=== PATIENT | male | born 1985 | race Caucasian/White ===

== ENCOUNTER 2021-05-25 17:54 | Emergency (ER) | payer SELFPAY ==
--- NOTE | ~2021-05-25 | XR_ITS ---
EXAMINATION: XR chest 1V portable EXAM DATE: 05/25/2021 18:50 INDICATION: Center ant chest pain. TECHNIQUE: Portable AP frontal chest x-ray was obtained. Comparison is made to prior examination from 05/13/2015. FINDINGS: The lungs are clear. There are no pleural effusions. The cardiomediastinal silhouette is within normal limits. There is no pneumothorax suspected. The bones and soft tissues are unremarkab le. IMPRESSION: No acute cardiopulmonary findings. Reviewed, dictated and finalized at location G.
[2021-05-25 18:00] VITALS: BP 148/96; PULSE 102; RESP 20; TEMP 36.8; O2SAT 100
--- NOTE | 2021-05-25 18:20 | ECG_ITS ---
Measurements Intervals [place] Rate: 87 P: 59 MT: 136 QRS: 6 QRSD: 83 T: 51 QT: 337 QTc: 405 Interpretive Statements SINUS RHYTHM POSSIBLE RIGHT VENTRICULAR CONDUCTION DELAY [RSR (QR) IN V1/V2] BORDERLINE ECG NO PREVIOUS ECG AVAILABLE FOR COMPARISON Electronically Signed On 05-26-2021 13:47:29 CDT by Alonzo Nam M.D.
[2021-05-25 18:32] LABS: Basophils Absolute Auto 0.03 K/mm3 (0.00-0.10); Basophils Percent Auto 0.4 % (0.0-1.0); Eosinophils Absolute Auto 0.21 K/mm3 (0.02-0.50); Eosinophils Percent Auto 2.9 % (1.0-6.0); Hematocrit 44.7 % (40.0-54.0); Hemoglobin 14.8 g/dL (14.0-18.0); Immature Granulocyte Absolute 0.03 K/mm3 (0.00-0.00); Immature Granulocyte Percent A 0.4 % (0.0-0.0); Lymphocytes Percent Auto 27.4 % (18.0-42.0); Mean Corpuscular HGB Conc 33.1 g/dL (32.0-36.0); Mean Corpuscular Hemoglobin 29.3 pg (27.0-31.0); Mean Corpuscular Volume 88.5 fL (78.0-102.0); Mean Platelet Volume 10.5 fl (8.7-11.0); Monocytes Absolute Auto 0.64 K/mm3 (0.10-0.90); Monocytes Percent Auto 8.8 % (2.0-11.0); Neutrophils Absolute Auto 4.4 K/mm3 (1.7-7.2); Neutrophils Percent Auto 60.1 % (50.0-70.0); Platelet Count Result 182 K/mm3 (150-420); Red Blood Count 5.05 M/mm3 (4.70-6.10); Red Cell Distribution Width 12.6 % (11.6-14.4); White Blood Count 7.3 K/mm3 (4.8-10.8)
--- NOTE | 2021-05-25 18:41 | ED.CHESTPAIN ---
HPI - Chest Pain General Chief Complaint: Unspecified Stated Complaint: chest pain Source: patient Mode of arrival: ambulatory Limitations: no limitations History of Present Illness HPI narrative: Pt says he has been having intermittent sharp parasternal Cp off and on for 2 months. Pt says it seems to be brought on by picking up arms. Says it comes on and can last several minutes and then he gets himself panicking and takes awhile to clam down. MD complaint: chest pain Onset (ago): month(s) (2 months) Timing of current episode: episodic Prior episodes: Yes Onset: other (with movemnent of upper extremities ) Pain location: parasternal Pain radiation: none Severity: moderate Quality: sharp Relieving factors: nothing Exacerbating factors: palpation and movement Related Data Allergies Allergy/AdvReac Type Severity Reaction Status Date / Time No Known Allergies Allergy Mild Verified 05/25/21 18:15 Review of Systems Review of Systems: All systems reviewed & are unremarkable except as noted in HPI and below Exam Const: General: no acute distress Nutritional Appearance: well nourished Orientation/consciousness: patient oriented x3 Neck: Neck: normal visual inspection Chest: Chest palpation & inspection: normal inspection of the chest and tenderness (tender to palpation left parasternal reproduces pain) Resp: Effort & Inspection: normal respiratory effort Auscultation: clear to auscultation bilaterally Cardio: Rate: regular rate Rhythm: regular rhythm GI: GI Palp: Yes Soft to palpation Skin: General skin exam: normal color Neuro: General: patient oriented x3, moves all extremities and no focal motor deficits Extrem: General: normal to inspection Psych: Appearance: grossly normal Mental Status: mental status grossly normal Thought content: Yes Normal thought content present Course Vital Signs Vital signs: Vital Signs Temperature 98.2 F 05/25/21 18:00 Pulse Rate 102 H 05/25/21 18:00 Respiratory Rate 20 05/25/21 18:00 Blood Pressure 148/96 H 05/25/21 18:00 Pulse Oximetry 100 05/25/21 18:00 Temperature 98.2 F 05/25/21 18:00 Pulse Rate 102 H 05/25/21 18:00 Respiratory Rate 20 05/25/21 18:00 Blood Pressure 148/96 H 05/25/21 18:00 Pulse Oximetry 100 05/25/21 18:00 MDM - Chest Pain Lab Data Result diagrams: 05/25/21 18:30 05/25/21 18:29 Labs: Lab Results 05/25/21 05/25/21 Range/Units 18:29 18:30 WBC 7.3 (4.8-10.8) K/mm3 RBC 5.05 (4.70-6.10) M/mm3 Hgb 14.8 (14.0-18.0) g/dL Hct 44.7 (40.0-54.0) % MCV 88.5 (78.0-102.0) fL MCH 29.3 (27.0-31.0) pg MCHC 33.1 (32.0-36.0) g/dL RDW 12.6 (11.6-14.4) % Plt Count 182 (150-420) K/mm3 MPV 10.5 (8.7-11.0) fl Immature Gran % (Auto) 0.4 H (0.0-0.0) % Neut % (Auto) 60.1 (50.0-70.0) % Lymph % (Auto) 27.4 (18.0-42.0) % [place] % (Auto) 8.8 (2.0-11.0) % Eos % (Auto) 2.9 (1.0-6.0) % Baso % (Auto) 0.4 (0.0-1.0) % Lymph # (Auto) 2.00 (1.10-4.50) K/mm3 [place] # (Auto) 0.64 (0.10-0.90) K/mm3 Eos # (Auto) 0.21 (0.02-0.50) K/mm3 Baso # (Auto) 0.03 (0.00-0.10) K/mm3 Abs Immat Gran (auto) 0.03 H (0.00-0.00) K/mm3 Absolute Neuts (auto) 4.4 (1.7-7.2) K/mm3 Absolute Nucleated RBC 0.00 (0.00-0.00) K/mm3 Nucleated RBC % 0.0 (0-0.0) % Sodium 137 (136-145) mmol/L Potassium 3.7 (3.5-5.1) mmol/L Chloride 101 (98-108) mmol/L Carbon Dioxide 28 (21-32) mmol/L Anion Gap 8 (8-16) mmol/L BUN 11 (7-18) mg/dL Creatinine 1.08 (0.70-1.30) mg/dL Estim Creat Clear Calc 94 ml/min Estimated GFR > 60 (59 - ) Glucose 86 (70-99) mg/dL Calculated Osmolality 282 L (285-295) mOsm/kg Calcium 8.3 L (8.5-10.1) mg/dL Total Bilirubin 0.4 (0.00-1.00) mg/dL AST 18 (15-37) U/L ALT 27 (16-63) U/L Alkaline Phosphatase 56 (46-116) U/L Troponin I 8.2 (0.00-60.4) ng/L Total Protein 7.1 (6.4
[2021-05-25 18:50] LABS: Alanine Aminotransferase 27 U/L (16-63); Albumin Level 4.2 g/dL (3.4-5.0); Alkaline Phosphatase 56 U/L (46-116); Anion Gap 8 mmol/L (8-16); Aspartate Amino Transferase 18 U/L (15-37); Bilirubin,Total 0.4 mg/dL (0.00-1.00); Blood Urea Nitrogen 11 mg/dL (7-18); Calcium 8.3 mg/dL (8.5-10.1); Carbon Dioxide 28 mmol/L (21-32); Chloride 101 mmol/L (98-108); Estimated CRCL calculation 94 ml/min; Estimated Glomerular Filt Rate > 60; Glucose 86 mg/dL (70-99); Osmolality Calculated 282 mOsm/kg (285-295); Potassium 3.7 mmol/L (3.5-5.1); Sodium 137 mmol/L (136-145); Total Protein 7.1 g/dL (6.4-8.2)
[2021-05-25 19:04] LABS: Troponin I 8.2 ng/L (0.00-60.4)
[2021-05-25 19:25] VITALS: BP 130/87; PULSE 64; RESP 18; TEMP 36.6; O2SAT 97
== END 2021-05-25 19:30 | disposition home or self-care (01) ==
PROVIDERS: Emergency Provider Emergency Medicine
DX: R07.89 Other chest pain (principal)
CPT/HCPCS: 36415; 71045; 80053; 84484; 85025; 93005; 99284

== ENCOUNTER 2023-10-20 14:42 | Outpatient (CLI) | payer OTHER, SELFPAY ==
[2023-10-24 15:18] LABS: H pylori, Urea Breath NOT DETECTED (NOT DETECTED)
== END 2023-10-20 14:43 | disposition home or self-care (01) ==
LOC: CHSLAB 14:44
PROVIDERS: PCP Family Medicine; Visit Provider Family Medicine
DX: K21.9 Gastro-esophageal reflux disease without esophagitis (principal)
CPT/HCPCS: 83013

== ENCOUNTER 2023-10-21 08:41 | Outpatient (CLI) | payer OTHER, SELFPAY ==
[2023-10-21 13:08] LABS: Basophils Absolute Auto 0.03 K/mm3 (0.00-0.10); Basophils Percent Auto 0.5 % (0.0-1.0); Eosinophils Absolute Auto 0.29 K/mm3 (0.02-0.50); Eosinophils Percent Auto 5.3 % (1.0-6.0); Hematocrit 47.5 % (40.0-54.0); Hemoglobin 15.7 g/dL (14.0-18.0); Immature Granulocyte Absolute 0.03 K/mm3 (0.00-0.00); Immature Granulocyte Percent A 0.5 % (0.0-0.0); Lymphocytes Percent Auto 29.1 % (18.0-42.0); Mean Corpuscular HGB Conc 33.1 g/dL (32-36); Mean Corpuscular Hemoglobin 29.5 pg (27.0-31.0); Mean Corpuscular Volume 89.1 fL (78.0-102.0); Monocytes Absolute Auto 0.54 K/mm3 (0.10-0.90); Monocytes Percent Auto 9.8 % (2.0-11.0); Neutrophils Percent Auto 54.8 % (50.0-70.0); Platelet Count Result 211 K/mm3 (150-420); Red Blood Count 5.33 M/mm3 (4.70-6.10); Red Cell Distribution Width 13.3 % (11.6-14.4); White Blood Count 5.5 K/mm3 (4.8-10.8)
[2023-10-21 13:29] LABS: Alanine Aminotransferase 56 U/L (16-63); Albumin Level 4.2 g/dL (3.4-5.0); Alkaline Phosphatase 68 U/L (46-116); Anion Gap 8 mmol/L (4-12); Aspartate Amino Transferase 28 U/L (15-37); Bilirubin,Total 1.1 mg/dL (0.00-1.00); Blood Urea Nitrogen 12 mg/dL (7-18); Calcium 8.8 mg/dL (8.5-10.1); Carbon Dioxide 30 mmol/L (21-32); Chloride 102 mmol/L (98-108); Cholesterol 205 mg/dL (0-200); Estimated Glomerular Filt Rate > 60; Glucose 91 mg/dL (70-99); HDL Direct 43 mg/dL (40-60); LDL Cholesterol Calculated 140 mg/dL (<130); Osmolality Calculated 289 mOsm/kg (285-295); Potassium 4.4 mmol/L (3.5-5.1); Sodium 140 mmol/L (136-145); Total Protein 7.1 g/dL (6.4-8.2); Triglycerides 110 mg/dL (0-150)
[2023-10-21 13:46] LABS: Thyroid Stimulating Hormone Reflex 1.81 u/IU/mL (0.36-3.74)
== END 2023-10-21 08:42 | disposition home or self-care (01) ==
LOC: CHSLAB 08:43
PROVIDERS: PCP Family Medicine; Visit Provider Family Medicine
DX: Z00.00 Encounter for general adult medical examination without abnormal findings (principal); E03.9 Hypothyroidism, unspecified
CPT/HCPCS: 36415; 80053; 80061; 84443; 85025

== ENCOUNTER 2023-10-25 16:48 | Outpatient (CLI) | payer OTHER, SELFPAY ==
--- NOTE | ~2023-10-25 | CT_ITS ---
EXAMINATION: CT sinus wo con DATE: 10/25/2023 17:02 INDICATION: Chronic sinusitis TECHNIQUE: Computed tomography (CT) of the paranasal sinuses was performed without intravenous contra st. The dose-length product was 300.40 mGy-cm. Automated exposure control and iterative reconstructio n technique were employed. COMPARISON: CT dated 06/27/2009 FINDINGS: There is pansinusitis which appears chronic. Mastoids are pneumatized. Rightward nasal sept al deviation. The ostiomeatal units are occluded by soft tissue. No significant mucoperiosteal reacti on. IMPRESSION: 1. Pansinusitis, likely chronic. Reviewed, dictated and finalized at location B.
== END 2023-10-25 16:49 | disposition home or self-care (01) ==
LOC: CHSIMG 16:49
PROVIDERS: PCP Family Medicine; Visit Provider Family Medicine
DX: J32.4 Chronic pansinusitis (principal)
CPT/HCPCS: 70486